=== PATIENT | female | born 1950 | race Caucasian/White ===

== ENCOUNTER 2023-09-22 12:09 | Inpatient (IN) | payer MEDICARE ==
[2023-09-22 12:47] LABS: Actual Bicarbonate (HCO3v) 20.4 mEq/L (22-28); Calcium, Ionized (venous) 1.31 mmol/L (1.16-1.32); Chloride (VBG) 102 mmol/L (98-106); Hematocrit-VBG 44 % (36.0-47.0); Hemoglobin (Hb) 14.9 g/dL (11.7-16.1); Potassium (VBG) 5.34 mmol/L (3.70-5.30); Puncture Site Other Site; Sodium 137 mmol/L (133-146); pH (venous) 7.206 (7.32-7.43)
[2023-09-22 12:54] LABS: #Basophils 0.1 10x3/uL (0.0-0.2); #Eosinphils 0.1 10x3/uL (0.0-0.5); #Monocytes 0.7 10x3/uL (0.0-1.1); #Neutrophils 10.1 10x3/uL (1.5-8.4); %Basophils 0.9 % (0.0-2.0); %Eosinophils 1.2 % (0.0-6.0); %Lymphocytes 7.7 % (18.0-47.0); %Monocytes 5.8 % (0.0-10.0); %Neutrophils 83.8 % (40.0-75.0); Hematocrit 42.9 % (34.9-44.5); Hemoglobin 14.5 g/dL (12.0-15.5); Mean Corpuscular HGB CONC 33.8 g/dL (32.0-36.0); Mean Corpuscular Hemoglobin 32.4 pg (27.0-33.0); Mean Corpuscular Volume 95.8 fl (81.6-98.3); Mean Platelet Volume 10.6 fl (7.4-10.4); Platelet Count 255 10x3/uL (150-450); RBC Distribution Width 14.3 % (11.5-14.5); Red Blood Cell (RBC) Count 4.48 10x6/uL (3.90-5.03)
[2023-09-22 13:02] LABS: ALT (SGPT) 80 U/L (8-55); Albumin 4.2 g/dL (3.4-4.8); Alkaline Phosphatase 79 U/L (40-110); Anion Gap 18 mmol/L (10-20); BUN (Urea Nitrogen) 29 mg/dL (9.8-20.1); Bilirubin, Total 0.5 mg/dL (0.2-1.2); Calc. Creatinine Clearance 0 mL/min (70-130); Calcium 10.1 mg/dL (7.8-10.44); Carbon Dioxide 20 mmol/L (23-31); Chloride 105 mmol/L (98-107); Estimated GFR 65; Globulin 2.7 g/dL (2.4-3.5); Glucose 214 mg/dL (83-110); Potassium 5.8 mmol/L (3.5-5.1); Protein, Total 6.9 g/dL (5.8-8.1); Sodium 137 mmol/L (136-145)
[2023-09-22 13:07] LABS: AST (SGOT) 39 U/L (5-34)
[2023-09-22 13:09] LABS: Troponin I 0.011 ng/mL (< 0.028)
[2023-09-22] MEDS ORDERED: Acetaminophen 325 MG TAB PO PRN (13:40)
[2023-09-22] MEDS ORDERED: Dextrose 5% in Water 1,000 ML IV PRN (13:45)
[2023-09-22] MEDS ORDERED: HumaLOG 300 UNITS/3 ML VIAL SC PRN (13:45)
[2023-09-22] MEDS ORDERED: Glucagon 1 MG/ML KIT IM PRN (13:45)
[2023-09-22] MEDS ORDERED: Dextrose 50% Abboject 50 ML SYRINGE SLOW IVP PRN (13:45)
[2023-09-22] MEDS ORDERED: Famotidine 20 MG TAB ONE (21:27)
[2023-09-22] MEDS: Famotidine 20 MG TAB PO SCH (21:32)
[2023-09-22] MEDS: Citalopram 20 MG TAB PO SCH (21:32)
[2023-09-23 02:57] LABS: #Basophils 0.1 10x3/uL (0.0-0.2); #Eosinphils 0.2 10x3/uL (0.0-0.5); #Monocytes 1.1 10x3/uL (0.0-1.1); #Neutrophils 6.4 10x3/uL (1.5-8.4); %Basophils 0.7 % (0.0-2.0); %Eosinophils 1.7 % (0.0-6.0); %Lymphocytes 20.2 % (18.0-47.0); %Monocytes 11.1 % (0.0-10.0); Hemoglobin 13.5 g/dL (12.0-15.5); Mean Corpuscular HGB CONC 34.6 g/dL (32.0-36.0); Mean Corpuscular Hemoglobin 32.1 pg (27.0-33.0); Mean Corpuscular Volume 92.9 fl (81.6-98.3); Mean Platelet Volume 10.3 fl (7.4-10.4); Platelet Count 222 10x3/uL (150-450); RBC Distribution Width 14.2 % (11.5-14.5); White Blood Cell (WBC) Count 9.7 10x3/uL (3.5-10.5)
[2023-09-23 03:09] LABS: Anion Gap 18 mmol/L (10-20); BUN (Urea Nitrogen) 26 mg/dL (9.8-20.1); Calc. Creatinine Clearance 0 mL/min (70-130); Calcium 9.9 mg/dL (7.8-10.44); Carbon Dioxide 18 mmol/L (23-31); Chloride 106 mmol/L (98-107); Estimated GFR 74; Glucose 99 mg/dL (83-110); Potassium 4.5 mmol/L (3.5-5.1); Sodium 137 mmol/L (136-145)
[2023-09-23] MEDS ORDERED: Furosemide 40 MG/4 ML VIAL ONE (06:00)
[2023-09-23] MEDS: Furosemide 40 MG/4 ML VIAL SLOW IVP SCH ×2 (06:04→14:16)
[2023-09-23] MEDS ORDERED: Famotidine/PF 20 mg/2ml Vial ONE (08:57)
[2023-09-23] MEDS: Atorvastatin Calcium 20 MG TAB PO SCH (09:21)
[2023-09-23] MEDS: Famotidine 20 MG TAB PO SCH ×2 (09:22→20:36)
[2023-09-23 10:38] LABS: Troponin I 0.118 ng/mL (< 0.028)
[2023-09-23] MEDS ORDERED: Sotalol HCl 80 MG TAB PO SCH (11:00)
[2023-09-23 11:35] VITALS: BMI 28.5
[2023-09-23] MEDS ORDERED: FLU VACC QS2023(65UP)/MF59C/PF 60 MCG/0.5 ML SYRINGE IM ONE (11:45)
[2023-09-23] MEDS: Sotalol HCl 80 MG TAB PO SCH (20:36)
[2023-09-23] MEDS: Citalopram 20 MG TAB PO SCH (20:37)
[2023-09-24] MEDS: Furosemide 40 MG/4 ML VIAL SLOW IVP SCH (07:45)
[2023-09-24 08:29] LABS: Anion Gap 15 mmol/L (10-20); BUN (Urea Nitrogen) 31 mg/dL (9.8-20.1); Calc. Creatinine Clearance 59 mL/min (70-130); Calcium 10.7 mg/dL (7.8-10.44); Carbon Dioxide 27 mmol/L (23-31); Chloride 98 mmol/L (98-107); Estimated GFR 55; Glucose 108 mg/dL (83-110); Potassium 4.3 mmol/L (3.5-5.1); Sodium 136 mmol/L (136-145)
[2023-09-24] MEDS: Sotalol HCl 80 MG TAB PO SCH ×2 (09:24→21:24)
[2023-09-24] MEDS: Famotidine 20 MG TAB PO SCH ×2 (09:24→21:25)
[2023-09-24] MEDS: Atorvastatin Calcium 20 MG TAB PO SCH (09:24)
[2023-09-24] MEDS ORDERED: Nitrofurantoin Monohyd/M-Cryst 100 MG CAP PO SCH (18:15)
[2023-09-24] MEDS: Citalopram 20 MG TAB PO SCH (21:24)
[2023-09-25 04:04] LABS: Anion Gap 15 mmol/L (10-20); BUN (Urea Nitrogen) 39 mg/dL (9.8-20.1); Calc. Creatinine Clearance 55 mL/min (70-130); Calcium 10.2 mg/dL (7.8-10.44); Carbon Dioxide 25 mmol/L (23-31); Chloride 99 mmol/L (98-107); Estimated GFR 51; Glucose 104 mg/dL (83-110); Potassium 4.3 mmol/L (3.5-5.1); Sodium 135 mmol/L (136-145)
[2023-09-25] MEDS ORDERED: Atropine Sulfate 1 mg/1 ml Vial ONE (07:57)
[2023-09-25] MEDS ORDERED: Heparin 10,000 UNITS/ 10 ML VIAL ONE (07:57)
[2023-09-25] MEDS ORDERED: Adenosine 6 MG/2 ML VIAL ONE (07:57)
[2023-09-25] MEDS ORDERED: Nitroglycerin 50 MG/250 ML BOT 0 ML ONE (07:57)
[2023-09-25] MEDS ORDERED: Lidocaine 1% (PF) 30 ML VIAL ONE (07:57)
[2023-09-25] MEDS: Atorvastatin Calcium 20 MG TAB PO SCH (08:21)
[2023-09-25] MEDS: Sotalol HCl 80 MG TAB PO SCH ×2 (08:21→21:04)
[2023-09-25] MEDS: Nitrofurantoin Macrocrystal 50 MG CAP PO SCH (08:21)
[2023-09-25] MEDS ORDERED: Iopamidol 300 61% 100 ML VIAL FS ONE (10:29)
[2023-09-25] MEDS ORDERED: Midazolam HCl 2 mg/2 ml Vial ONE (10:38)
[2023-09-25] MEDS ORDERED: fentaNYL 50 mcg/mL 1 mL Vial ONE (10:38)
[2023-09-25] MEDS ORDERED: Acetaminophen/Codeine 30-300mg Tablet PO PRN ×2 (12:30)
[2023-09-25] MEDS ORDERED: Sodium Chloride 0.9% 200 ML IV PRN (12:30)
[2023-09-25] MEDS ORDERED: Nitroglycerin 0.4 MG TAB (25 Tab Bottle) SL PRN (12:30)
[2023-09-25] MEDS ORDERED: Sodium Chloride 0.9% 1,000 ML IV SCH (12:30)
[2023-09-25] MEDS: Furosemide 40 MG/4 ML VIAL SLOW IVP SCH (14:34)
[2023-09-25] MEDS ORDERED: Famotidine 20 MG TAB PO SCH (21:00)
[2023-09-25] MEDS: Citalopram 20 MG TAB PO SCH (21:05)
[2023-09-26] MEDS: Furosemide 40 MG/4 ML VIAL SLOW IVP SCH (09:53)
[2023-09-26] MEDS: Atorvastatin Calcium 20 MG TAB PO SCH (09:58)
[2023-09-26] MEDS: Nitrofurantoin Macrocrystal 50 MG CAP PO SCH (09:58)
[2023-09-26] MEDS: Sotalol HCl 80 MG TAB PO SCH (09:58)
[2023-09-26] MEDS ORDERED: Furosemide 40 MG TAB PO SCH (10:00)
[2023-09-26 10:26] LABS: Anion Gap 12 mmol/L (10-20); BUN (Urea Nitrogen) 27 mg/dL (9.8-20.1); Calc. Creatinine Clearance 66 mL/min (70-130); Calcium 10.2 mg/dL (7.8-10.44); Carbon Dioxide 26 mmol/L (23-31); Chloride 104 mmol/L (98-107); Estimated GFR 61; Glucose 148 mg/dL (83-110); Magnesium 2.2 mg/dL (1.6-2.6); Potassium 4.7 mmol/L (3.5-5.1); Sodium 137 mmol/L (136-145)
[2023-09-26 12:41] VITALS: BP 124/65; TEMP 96.7
[2023-09-27] MEDS ORDERED: Furosemide 40 MG TAB PO SCH (07:30)
== END 2023-09-26 14:07 | disposition home or self-care (01) | DRG 286 ==
LOC: CSHERS 12:09 → CSHERHOLD 12:34 → CSHTELE 09-23 10:55
PROVIDERS: ADMIT Internal Medicine; ATTEND Internal Medicine
PROC: 5A09357 Assistance with Respiratory Ventilation, Less than 24 Consecutive Hours, Continuous Positive Airway Pressure (ICD-10-PCS; 2023-09-22)
PROC: 5A09357 Assistance with Respiratory Ventilation, Less than 24 Consecutive Hours, Continuous Positive Airway Pressure (ICD-10-PCS; 2023-09-23)
PROC: 4A023N7 Measurement of Cardiac Sampling and Pressure, Left Heart, Percutaneous Approach (ICD-10-PCS; principal; 2023-09-25)
PROC: B2111ZZ Fluoroscopy of Multiple Coronary Arteries using Low Osmolar Contrast (ICD-10-PCS; 2023-09-25)
PROC: B2151ZZ Fluoroscopy of Left Heart using Low Osmolar Contrast (ICD-10-PCS; 2023-09-25)
DX: I11.0 Hypertensive heart disease with heart failure (principal); I50.33 Acute on chronic diastolic (congestive) heart failure; J96.01 Acute respiratory failure with hypoxia; E78.00 Pure hypercholesterolemia, unspecified; E11.9 Type 2 diabetes mellitus without complications; F32.A Depression, unspecified; G47.33 Obstructive sleep apnea (adult) (pediatric); I49.3 Ventricular premature depolarization; I25.10 Atherosclerotic heart disease of native coronary artery without angina pectoris; E78.2 Mixed hyperlipidemia; Z98.51 Tubal ligation status; Z87.891 Personal history of nicotine dependence; Z79.84 Long term (current) use of oral hypoglycemic drugs; Z79.899 Other long term (current) drug therapy
CPT/HCPCS: 36415; 36416; 71045; 71046; 80048; 80053; 82805; 83735; 83880; 84484; 85025; 93005; 93010; 93306; 93458; 94660; 94760; 99152; C1760; C1769; J0153; J0461; J1644; J1650; J1940; J2001; J2250; J3010; J7050; Q9967; S0028

== ENCOUNTER 2024-10-07 11:21 | Outpatient (CLI) | payer MEDICARE | END 2024-10-07 11:22 | disposition home or self-care (01) | LOC: CSHRAD 11:21 | PROVIDERS: ATTEND Internal Medicine | DX: M79.672 Pain in left foot (principal); M19.072 Primary osteoarthritis, left ankle and foot ==